=== PATIENT | male | born 1995 | race Two or more races ===

== ENCOUNTER 2019-12-16 09:47 | Inpatient (IN) | payer MEDICAID, OTHER ==
[~2019-12-16] VITALS: Ht 175.3 cm; Wt 70.8 kg
[2019-12-16] MEDS ORDERED: NALOXONE HCL 1MG/ML 2ML SYRINGE ONE (09:51)
[2019-12-16] MEDS ORDERED: NALOXONE HCL 0.4 MG/ML VIAL ONE (09:54)
[2019-12-16] MEDS ORDERED: ONDANSETRON HCL 4 MG/2 ML VIAL ONE (10:14)
[2019-12-16] MEDS ORDERED: NALOXONE HCL 1MG/ML 2ML SYRINGE IV ONE (10:15)
[2019-12-16] MEDS ORDERED: ONDANSETRON HCL 4 MG/2 ML VIAL IV ONE (10:15)
[2019-12-16 10:23] LABS: Basophils # (auto) 0 10 ^3/uL (0-0.2); Basophils % (auto) 0.2 % (0.0-2.0); Eosinophils # (auto) 0 10 ^3/uL (0-0.8); Hematocrit 49.9 % (41.0-53.0); Hemoglobin 15.8 g/dL (13.5-17.5); Lymphocytes # (auto) 1.2 10 ^3/uL (0.4-5.4); Lymphocytes % (auto) 5.2 % (10.0-50.0); Mean Corpuscular Hemoglobin 31.2 pg (28.0-32.0); Mean Corpuscular Hgb Conc. 31.7 g/dL (32.0-36.0); Mean Corpuscular Volume 98.3 fL (80.0-100.0); Monocytes % (auto) 8.6 % (0.0-12.0); Neutrophils # (auto) 20.2 10 ^3/uL (1.6-8.6); Nucleated Red Blood Cells % 0.1 %; Platelet Count (auto) 346 10^3/uL (140-450); Red Blood Cells 5.07 10^6/uL (4.5-5.90); Red Cell Distribution Width 13.8 % (11.8-14.3); White Blood Cell 23.5 10^3/uL (4.4-10.8)
[2019-12-16 10:27] LABS: Urine Bacteria FEW /hpf (None Seen); Urine Blood 2+ /uL (Negative); Urine Hyaline Cast MOD /lpf (0 - 2); Urine Mucus FEW (None Seen); Urine Specific Gravity 1.017 (1.001-1.035); Urine WBC 6 /hpf (0 - 3)
[2019-12-16 10:45] LABS: Albumin 3.9 g/dL (3.4-5.0); Anion Gap 14 (5-15); Blood Alcohol < 3.0 mg/dL (0-5); Blood Urea Nitrogen 12 mg/dL (7-18); Calcium 8.2 mg/dL (8.5-10.1); Carbon Dioxide 21 mmol/L (21-32); Chloride 104 mmol/L (98-107); Glucose 84 mg/dL (74-106); Magnesium 3.1 mg/dL (1.6-2.6); Potassium 4.5 mmol/L (3.5-5.1); Sodium 139 mmol/L (136-145)
[2019-12-16 10:47] LABS: Alcohol, Urine < 3.0 mg/dL (0-10); Amphetamine Screen, Urine NEGATIVE (NEGATIVE); Barbiturate Scree,Urine NEGATIVE (NEGATIVE); Benzodiazephine Screen, Urine NEGATIVE (NEGATIVE); Cannabinoid Screen, Urine POSITIVE (NEGATIVE); Cocaine Screen, Urine POSITIVE (NEGATIVE); Phencyclidine Screen, Urine NEGATIVE (NEGATIVE)
[2019-12-16 10:51] LABS: Alanine Aminotransferase 25 U/L (16-61); Alkaline Phosphatase 125 U/L (45-117); Aspartate Aminotransferase 39 U/L (15-37); BUN/Creatinine Ratio 5.5; Bilirubin, Total 0.3 mg/dL (0.2-1.0); GFR African American 47 mL/min; GFR Non-African American 39 mL/min
[2019-12-16 10:55] LABS: Opiate Scree,Urine NEGATIVE (NEGATIVE)
[2019-12-16] MEDS ORDERED: SODIUM CHLORIDE 0.9% 1,000 ML IV ONE ×2 (11:15)
[2019-12-16 12:34] LABS: Acetaminophen < 2.0 ug/mL (10-30); Salicylate < 1.7 mg/dL (2.8-20.0)
[2019-12-16] MEDS ORDERED: MORPHINE SULF INJ 2 MG/ML SYRINGE 1ML IV PRN (15:15)
[2019-12-16] MEDS ORDERED: NITROGLYCERIN 0.4 MG SL TAB SL PRN (15:15)
[2019-12-16] MEDS ORDERED: NALOXONE HCL 0.4 MG/ML VIAL IV PRN (15:15)
[2019-12-16] MEDS: SODIUM CHLORIDE 0.9% 1,000 ML IV SCH ×2 (15:15→23:48)
[2019-12-16 17:00] VITALS: BP 118/66
[2019-12-16 20:12] VITALS: BP 104/69
[2019-12-16] MEDS: ONDANSETRON HCL 4 MG/2 ML VIAL IV PRN (21:14)
[2019-12-16 23:44] VITALS: BP 101/63
[2019-12-17] MEDS ORDERED: DOXYCYCLINE 100MG/250ML 250 ML IV SCH (01:00)
[2019-12-17] MEDS: PIPERACILLIN-TAZOB 2.25GM 50 ML IV SCH ×2 (02:29→05:59)
[2019-12-17 03:29] LABS: Basophils # (auto) 0 10 ^3/uL (0-0.2); Basophils % (auto) 0.2 % (0.0-2.0); Eosinophils # (auto) 0 10 ^3/uL (0-0.8); Eosinophils % (auto) 0.2 % (0.0-7.0); Hematocrit 40.9 % (41.0-53.0); Hemoglobin 13.5 g/dL (13.5-17.5); Lymphocytes # (auto) 2.6 10 ^3/uL (0.4-5.4); Lymphocytes % (auto) 16.2 % (10.0-50.0); Mean Corpuscular Hemoglobin 31.2 pg (28.0-32.0); Mean Corpuscular Hgb Conc. 33.1 g/dL (32.0-36.0); Mean Corpuscular Volume 94.5 fL (80.0-100.0); Monocytes % (auto) 6.3 % (0.0-12.0); Neutrophils # (auto) 12.5 10 ^3/uL (1.6-8.6); Neutrophils % (auto) 77.1 % (37.0-80.0); Platelet Count (auto) 229 10^3/uL (140-450); Red Blood Cells 4.33 10^6/uL (4.5-5.90); Red Cell Distribution Width 13.5 % (11.8-14.3); White Blood Cell 16.2 10^3/uL (4.4-10.8)
[2019-12-17 03:49] LABS: Calcium 7.7 mg/dL (8.5-10.1); Potassium 3.9 mmol/L (3.5-5.1)
[2019-12-17 03:51] LABS: BUN/Creatinine Ratio 9.6
[2019-12-17 03:56] LABS: Bilirubin, Total 0.4 mg/dL (0.2-1.0); Total Protein 6.9 g/dL (6.4-8.2)
[2019-12-17 04:16] VITALS: BP 146/80
[2019-12-17] MEDS: SODIUM CHLORIDE 0.9% 1,000 ML IV SCH ×3 (07:15→23:04)
[2019-12-17 08:00] VITALS: BP 111/76
[2019-12-17 10:00] VITALS: BP 121/83
[2019-12-17] MEDS: levoFLOXacin 500MG 100 ML IV SCH ×2 (10:05→10:35)
[2019-12-17] MEDS: PANTOPRAZOLE 40 MG TAB PO SCH ×2 (10:05→10:35)
[2019-12-17] MEDS ORDERED: METHADONE HCL 10 MG TAB PO ONE (10:45)
[2019-12-17 12:11] VITALS: BP 125/83
[2019-12-17 16:16] VITALS: BP 121/78
[2019-12-17] MEDS: ONDANSETRON HCL 4 MG/2 ML VIAL IV PRN ×2 (16:30→22:17)
[2019-12-17 22:00] VITALS: BP 127/71
[2019-12-17] MEDS: ACETAMINOPHEN 500 MG TAB PO PRN (22:17)
[2019-12-18 05:00] VITALS: BP 136/81
[2019-12-18] MEDS: ACETAMINOPHEN 500 MG TAB PO PRN ×2 (06:00→15:11)
[2019-12-18 06:59] LABS: Basophils # (auto) 0 10 ^3/uL (0-0.2); Basophils % (auto) 0.2 % (0.0-2.0); Eosinophils # (auto) 0.1 10 ^3/uL (0-0.8); Eosinophils % (auto) 0.6 % (0.0-7.0); Hematocrit 38.7 % (41.0-53.0); Lymphocytes # (auto) 2.4 10 ^3/uL (0.4-5.4); Lymphocytes % (auto) 25.4 % (10.0-50.0); Mean Corpuscular Hemoglobin 31.4 pg (28.0-32.0); Mean Corpuscular Hgb Conc. 33.5 g/dL (32.0-36.0); Mean Corpuscular Volume 93.8 fL (80.0-100.0); Monocytes # (auto) 0.7 10 ^3/uL (0-1.3); Monocytes % (auto) 7.6 % (0.0-12.0); Neutrophils # (auto) 6.2 10 ^3/uL (1.6-8.6); Neutrophils % (auto) 66.2 % (37.0-80.0); Nucleated Red Blood Cells % 0.2 %; Platelet Count (auto) 218 10^3/uL (140-450); Red Blood Cells 4.13 10^6/uL (4.5-5.90); Red Cell Distribution Width 13.5 % (11.8-14.3); White Blood Cell 9.4 10^3/uL (4.4-10.8)
[2019-12-18 07:26] LABS: Potassium 3.7 mmol/L (3.5-5.1)
[2019-12-18 07:31] LABS: BUN/Creatinine Ratio 4.8; Calcium 8.1 mg/dL (8.5-10.1)
[2019-12-18] MEDS: SODIUM CHLORIDE 0.9% 1,000 ML IV SCH ×3 (08:05→17:15)
[2019-12-18] MEDS: PANTOPRAZOLE 40 MG TAB PO SCH (08:53)
[2019-12-18] MEDS: levoFLOXacin 500MG 100 ML IV SCH (08:53)
[2019-12-18] MEDS: METHADONE HCL 10 MG TAB PO SCH (08:55)
[2019-12-18 09:00] VITALS: BP 125/87
[2019-12-18 13:00] VITALS: BP 138/79
[2019-12-18 18:00] VITALS: BP 135/93
[2019-12-18 22:00] VITALS: BP 132/82
[2019-12-19 05:00] VITALS: BP 138/80
[2019-12-19] MEDS: SODIUM CHLORIDE 0.9% 1,000 ML IV SCH (05:53)
[2019-12-19 06:31] LABS: Basophils # (auto) 0 10 ^3/uL (0-0.2); Basophils % (auto) 0.6 % (0.0-2.0); Eosinophils # (auto) 0.1 10 ^3/uL (0-0.8); Eosinophils % (auto) 1.2 % (0.0-7.0); Hematocrit 40.9 % (41.0-53.0); Hemoglobin 13.9 g/dL (13.5-17.5); Lymphocytes # (auto) 1.8 10 ^3/uL (0.4-5.4); Lymphocytes % (auto) 26.9 % (10.0-50.0); Mean Corpuscular Hemoglobin 31.5 pg (28.0-32.0); Mean Corpuscular Hgb Conc. 33.9 g/dL (32.0-36.0); Mean Corpuscular Volume 93.1 fL (80.0-100.0); Monocytes # (auto) 0.5 10 ^3/uL (0-1.3); Neutrophils # (auto) 4.3 10 ^3/uL (1.6-8.6); Neutrophils % (auto) 64.3 % (37.0-80.0); Nucleated Red Blood Cells % 0.1 %; Platelet Count (auto) 239 10^3/uL (140-450); Red Blood Cells 4.39 10^6/uL (4.5-5.90); Red Cell Distribution Width 12.8 % (11.8-14.3); White Blood Cell 6.6 10^3/uL (4.4-10.8)
[2019-12-19 06:40] LABS: Calcium 8.3 mg/dL (8.5-10.1); Potassium 3.8 mmol/L (3.5-5.1)
[2019-12-19 06:43] LABS: BUN/Creatinine Ratio 10.2
[2019-12-19] MEDS ORDERED: ADENOSINE 56 MG in GIVE UN-DILUTED 0 ML IV STA (08:10)
[2019-12-19 08:40] VITALS: BP 140/82
[2019-12-19 09:13] VITALS: BP 128/90
[2019-12-19] MEDS: METHADONE HCL 10 MG TAB PO SCH (10:00)
[2019-12-19] MEDS: levoFLOXacin 500 MG TAB PO SCH (10:10)
[2019-12-19] MEDS: PANTOPRAZOLE 40 MG TAB PO SCH (10:10)
[2019-12-19 13:00] VITALS: BP 148/103
[2019-12-19 17:00] VITALS: BP 140/93
[2019-12-19 22:00] VITALS: BP 148/84
[2019-12-20] VITALS (10 sets, daily range): BP systolic 110–137; BP diastolic 65–86
[2019-12-20] MEDS: METHADONE HCL 10 MG TAB PO SCH (09:26)
[2019-12-20] MEDS: PANTOPRAZOLE 40 MG TAB PO SCH (09:26)
[2019-12-20] MEDS: levoFLOXacin 500 MG TAB PO SCH (09:26)
[2019-12-20 12:26] LABS: INR 1.07 (0.9-1.15)
[2019-12-20] MEDS ORDERED: LIDOCAINE 2%HCL (LOCAL ANESTH.) INJ 20ML MDV ONE (12:49)
[2019-12-20] MEDS ORDERED: IOHEXOL 350 MG/ML 100ML IJ ONE (12:49)
[2019-12-20] MEDS ORDERED: ANGIOMAX 250 MG VIAL IV ONE (12:52)
[2019-12-20] MEDS ORDERED: MIDAZOLAM HCL 1MG/1ML-2 ML VIAL ONE (12:52)
[2019-12-20] MEDS ORDERED: SODIUM CHL 0.9% 0 ML ONE (12:52)
[2019-12-20] MEDS ORDERED: fentaNYL CITRATE 100 MCG/2 ML VL ONE (12:52)
== END 2019-12-20 18:30 | disposition home or self-care (01) | DRG 812 ==
LOC: ER 09:47 → EDBD 09:47 → TELE 09:48 → DOU IN ICU 16:07 → TELE-WESTW 12-17 11:57
PROVIDERS: ADMIT Nurse Practitioner Acute Care; ATTEND Internal Medicine
PROC: 4A023N8 Measurement of Cardiac Sampling and Pressure, Bilateral, Percutaneous Approach (ICD-10-PCS; principal; 2019-12-20)
PROC: B2111ZZ Fluoroscopy of Multiple Coronary Arteries using Low Osmolar Contrast (ICD-10-PCS; 2019-12-20)
PROC: B2161ZZ Fluoroscopy of Right and Left Heart using Low Osmolar Contrast (ICD-10-PCS; 2019-12-20)
DX: T40.7X1A Poisoning by cannabis (derivatives), accidental (unintentional), initial encounter (principal); J96.01 Acute respiratory failure with hypoxia; N17.0 Acute kidney failure with tubular necrosis; I21.A1 Myocardial infarction type 2; G92 Toxic encephalopathy; R65.10 Systemic inflammatory response syndrome (SIRS) of non-infectious origin without acute organ dysfunction; E44.1 Mild protein-calorie malnutrition; I42.9 Cardiomyopathy, unspecified; I48.0 Paroxysmal atrial fibrillation; T40.5X1A Poisoning by cocaine, accidental (unintentional), initial encounter; N18.3 Chronic kidney disease, stage 3 (moderate); F32.9 Major depressive disorder, single episode, unspecified; F14.10 Cocaine abuse, uncomplicated; F12.10 Cannabis abuse, uncomplicated; F17.200 Nicotine dependence, unspecified, uncomplicated; Z68.23 Body mass index [BMI] 23.0-23.9, adult; Y92.89 Other specified places as the place of occurrence of the external cause; Z79.899 Other long term (current) drug therapy; T40.2X1A Poisoning by other opioids, accidental (unintentional), initial encounter
CPT/HCPCS: 36415; 51702; 70450; 71045; 78452; 80048; 80053; 80307; 80320; 80329; 81001; 83735; 84443; 84484; 85025; 85610; 86141; 87040; 87081; 93005; 93017; 93306; 96361; 96374; 96375; 99152; 99153; 99291; C1751; G0378; J0153; J1956; J2250; J2405; J2543; J3490

== ENCOUNTER 2020-12-21 12:39 | Emergency (ER) | payer SELFPAY ==
[~2020-12-21] VITALS: Ht 167.6 cm; Wt 68.0 kg
[2020-12-21 13:39] VITALS: BP 122/65
== END 2020-12-21 13:50 | disposition home or self-care (01) ==
LOC: ER 12:39
DX: S52.502A Unspecified fracture of the lower end of left radius, initial encounter for closed fracture (principal); S52.602A Unspecified fracture of lower end of left ulna, initial encounter for closed fracture; X58.XXXA Exposure to other specified factors, initial encounter; Y93.89 Activity, other specified; Y92.89 Other specified places as the place of occurrence of the external cause; Y99.8 Other external cause status
CPT/HCPCS: 29125; 73110

== ENCOUNTER 2021-10-22 13:21 | Emergency (ER) | payer BC, MEDICAID ==
[~2021-10-22] VITALS: Ht 167.6 cm; Wt 79.4 kg
[2021-10-22] MEDS ORDERED: HYDROcodone-ACET 5/325MG TAB PO ONE (17:00)
[2021-10-22] MEDS ORDERED: ONDANSETRON ODT 4 MG TAB PO ONE (17:00)
[2021-10-22] MEDS ORDERED: cefTRIAXone SOD 1,000 MG VL IM ONE (17:00)
[2021-10-22] MEDS ORDERED: TETANUS-DIPTH-ACEL PERTUSSIS 0.5ML SYR Tdap IM ONE (17:00)
[2021-10-22 17:37] VITALS: BP 135/81
[2021-10-22] MEDS ORDERED: BACITRACIN TOP OINT 1 UD PKG TOP ONE (17:45)
[2021-10-22] MEDS ORDERED: CEPH-509 PO (17:56)
[2021-10-22] MEDS ORDERED: IBUP800T27 PO (17:56)
== END 2021-10-22 18:45 | disposition home or self-care (01) ==
LOC: ER 13:21
DX: S61.303A Unspecified open wound of left middle finger with damage to nail, initial encounter (principal); S61.304A Unspecified open wound of right ring finger with damage to nail, initial encounter; W01.0XXA Fall on same level from slipping, tripping and stumbling without subsequent striking against object, initial encounter; Y93.89 Activity, other specified; Y92.89 Other specified places as the place of occurrence of the external cause; Y99.8 Other external cause status
CPT/HCPCS: 73130; 90471; 90715; 96372; 99284; J0696; Q0162